=== PATIENT | male | born 1955 ===

== ENCOUNTER 2024-03-30 09:48 | Outpatient (CLI) | payer OTHER ==
[~2024-03-30 09:48] MED LIST: CIPRO500 MG PO; LEVSIN0.125 MG PO; LIPITOR20 MG; PROTONIX40 MG PO; VITACEL TABLET1 TAB; ZANTAC300 MG PO
== END 2024-03-30 09:58 | disposition home or self-care (01) ==
LOC: RX STUDY 09:48
DX: R13.14 Dysphagia, pharyngoesophageal phase (principal)

== ENCOUNTER 2025-01-31 07:10 | Outpatient (CLI) | payer OTHER | END 2025-01-31 07:19 | disposition home or self-care (01) | LOC: TOM 07:10 | PROVIDERS: ATTEND Otolaryngology | DX: R22.1 Localized swelling, mass and lump, neck (principal) | CPT/HCPCS: 70491; Q9965 ==